=== PATIENT | female | born 1940 | race Caucasian/White ===

== ENCOUNTER 2018-09-09 14:20 | Emergency (ER) | payer MEDICARE, MEDICAID ==
[~2018-09-09] VITALS: Ht 167.6 cm; Wt 61.2 kg
[~2018-09-09 14:20] MED LIST: ALBU8.5H8 IH; ASPI-992 PO; CLON0.5T23 PO; DESV50TA PO; DEXL60CA3 PO; DICL100G14 TP; DOCU100T PO; FLUT1DIS3 IH; FURO-144 PO; LEVO200T PO; NEBI10TA2 PO; POTA8TAB3 PO; ROFL500T PO; ROSU20TA2 PO; TOLT4CAP PO; VALS320T2 PO
--- NOTE | 2018-09-09 15:00 | NUR ---
PATIENT CAME TO THE ER C/O LEFT ARM, AND FOOT PAIN S/P FALL 10 DAYS AGO,-KO. ON ROOM AIR, BREATHING EVENLY AND UNLABORED. AMBULATORY WITH STEADY GAIT. WILL CONTINUE TO MONITOR ACCORDINGLY.
[2018-09-09 15:42] VITALS: BP 145/88
--- NOTE | 2018-09-09 15:44 | NUR ---
Patient does not wish to proceed with medical care recommended by ( [facility]). Patient given information related to possible complications, up to and including , which could occur as a result of leaving the hospital at this time. Patient verbalizes understanding of risks involved due to leaving against medical advice. Patient has signed AMA form.
== END 2018-09-09 15:44 | disposition left against medical advice (07) ==
LOC: ER 14:20
DX: M25.532 Pain in left wrist (principal); M79.672 Pain in left foot; I25.10 Atherosclerotic heart disease of native coronary artery without angina pectoris; I10 Essential (primary) hypertension; E78.5 Hyperlipidemia, unspecified; J45.909 Unspecified asthma, uncomplicated; Z95.1 Presence of aortocoronary bypass graft; Z90.710 Acquired absence of both cervix and uterus; Z90.49 Acquired absence of other specified parts of digestive tract; Z98.890 Other specified postprocedural states; Z88.6 Allergy status to analgesic agent; Z79.82 Long term (current) use of aspirin
CPT/HCPCS: 73110; 73630-TC

== ENCOUNTER 2019-03-14 08:48 | Emergency (ER) | payer MEDICARE, OTHER ==
[~2019-03-14] VITALS: Ht 167.6 cm; Wt 59.9 kg
--- NOTE | 2019-03-14 08:53 | NUR ---
BIB [facility] C/O PROGRESSIVE MID STERNAL CHEST PAIN WITH SOB X 1 WK. TO ER 9, HOOKED TO MONITOR, CHANGED TO HOSP GOWN PROVIDED W WARM BLANKET, AWAITING MD DAWSON.
[2019-03-14 09:23] LABS: BASOPHILS # (AUTO) 0.1 /CMM (0.0-0.2); BASOPHILS % (AUTO) 0.7 % (0.0-2.0); EOSINOPHILS % (AUTO) 0.7 % (0.0-6.0); HEMATOCRIT 36 % (33-45); HEMOGLOBIN 12.1 g/dL (11.5-14.8); LYMPHOCYTES # (AUTO) 0.6 /CMM (0.8-4.8); LYMPHOCYTES % (AUTO) 7.3 % (20.0-44.0); MEAN CORPUSCULAR HGB CONC 34 g/dl (31.0-36.0); MEAN CORPUSCULAR VOLUME 93 fL (82-100); MONOCYTES # (AUTO) 0.4 /CMM (0.1-1.30); NEUTROPHILS % (AUTO) 86.3 % (43.0-81.0); PLATELET COUNT (AUTO) 173 /CMM (150-450); RED BLOOD CELL COUNT(AUTO) 3.86 MIL/uL (4.0-5.2); WHITE BLOOD COUNT (AUTO) 8.2 K/uL (4.3-11.0)
--- NOTE | 2019-03-14 09:24 | NUR ---
RN MILITARY/MED RECON. UNABLE TO UPDATE MED-RECON AT THIS TIME. PATIENT AND FAMILY AT BEDSIDE UNABLE TO PROVIDE ANY INFO. PCP AND PHARMACY OF CHOICE ARE CLOSED ON WEEKEND. PER FAMILY "I'LL TRY TO BRING THE MEDICATION FROM HOME LATER". PRIMARY NURSE AWARE.
[2019-03-14 09:28] LABS: CREATININE 0.9 mg/dL (0.6-1.3); POTASSIUM 3.8 mmol/L (3.5-5.1)
[2019-03-14] MEDS ORDERED: ONDANSETRON HCL/PF 4 MG/2 ML VIAL IVP ONE (09:30)
[2019-03-14] MEDS ORDERED: MORPHINE SULFATE INJ 2 MG/ML DISP.SYRIN IV ONE (09:30)
--- NOTE | 2019-03-14 11:13 | NUR ---
IV removed. Catheter intact and site benign. Pressure and 4x4 applied to site. No bleeding noted.Patient discharged to home in stable condition. Written and verbal after care instructions given. Patient verbalizes understanding of instruction.
[2019-03-14 11:15] VITALS: BP 152/80
== END 2019-03-14 11:16 | disposition home or self-care (01) ==
LOC: ER 08:52
DX: I20.9 Angina pectoris, unspecified (principal); I11.0 Hypertensive heart disease with heart failure; E78.5 Hyperlipidemia, unspecified; J45.909 Unspecified asthma, uncomplicated; Z90.710 Acquired absence of both cervix and uterus; Z98.890 Other specified postprocedural states; Z88.8 Allergy status to other drugs, medicaments and biological substances; Z79.82 Long term (current) use of aspirin; Z79.899 Other long term (current) drug therapy
CPT/HCPCS: 36415; 71045-TC; 80048-TC; 83880; 84484-TC; 85025-TC

== ENCOUNTER 2022-06-16 12:10 | Emergency (ER) | payer MEDICARE, OTHER ==
[~2022-06-16] VITALS: Ht 167.6 cm; Wt 62.1 kg
[~2022-06-16 12:10] MED LIST changes: -DOCU100T PO; +DOCU100T28 PO
--- NOTE | 2022-06-16 12:24 | NUR ---
AT BEDSIDE FOR EVAL
[2022-06-16 12:51] LABS: BASOPHILS # (AUTO) 0.1 K/uL (0.0-0.2); BASOPHILS % (AUTO) 0.7 % (0.0-2.0); EOSINOPHILS % (AUTO) 0.8 % (0.0-6.0); HEMATOCRIT 35 % (33-45); HEMOGLOBIN 11.5 g/dL (11.5-14.8); LYMPHOCYTES # (AUTO) 1.2 K/uL (0.8-4.8); LYMPHOCYTES % (AUTO) 12.6 % (20.0-44.0); MEAN CORPUSCULAR HGB CONC 33 g/dl (31.0-36.0); MEAN CORPUSCULAR VOLUME 93 fL (82-100); MONOCYTES # (AUTO) 0.4 K/uL (0.1-1.30); NEUTROPHILS # (AUTO) 7.7 K/uL (1.8-8.9); NEUTROPHILS % (AUTO) 81.9 % (43.0-81.0); PLATELET COUNT (AUTO) 197 K/uL (150-450); WHITE BLOOD COUNT (AUTO) 9.4 K/uL (4.3-11.0)
[2022-06-16 13:02] LABS: CALCIUM, SERUM 9.4 mg/dL (8.5-10.1); CARBON DIOXIDE 25 mmol/L (21-32); CHLORIDE 108 mmol/L (98-107); CREATININE 1.1 mg/dL (0.6-1.3); GLUCOSE 150 mg/dL (74-106); SODIUM SERUM 142 mmol/L (136-145); UREA NITROGEN, BLOOD 26 mg/dL (7-18)
[2022-06-16 13:08] LABS: ALANINE AMINOTRANSFERASE 18 U/L (12-78); ALBUMIN 3.7 g/dL (3.4-5.0); ALKALINE PHOSPHATASE 64 U/L (46-116); ASPARTATE AMINOTRANSFERASE 19 U/L (15-37); BILIRUBIN,DIRECT 0.1 mg/dL (0.0-0.2); BILIRUBIN,TOTAL 0.4 mg/dL (0.2-1.0); TOTAL PROTEIN, SERUM 6.5 g/dL (6.4-8.2)
--- NOTE | 2022-06-16 13:19 | NUR ---
XRAY AT BEDSIDE
--- NOTE | 2022-06-16 13:21 | NUR ---
TROPONIN 77
[2022-06-16] MEDS ORDERED: FENTANYL PF 100MCG/2ML AMPUL IV ONE (13:30)
--- NOTE | 2022-06-16 14:13 | NUR ---
CONSENT SIGNED BY PATIENT.
[2022-06-16] MEDS ORDERED: PROPOFOL 20 ML IV ONE (14:14)
[2022-06-16] MEDS ORDERED: FENTANYL PF 100MCG/2ML AMPUL ONE (14:15)
--- NOTE | 2022-06-16 14:22 | NUR ---
MD AT BEDSIDE FOR PROCEDURAL SEDATION FOR RIGHT WRIST FRACTURE. RT AT BEDSIDE WELL.
--- NOTE | 2022-06-16 14:24 | NUR ---
ADMINISTERED 60MG OF PROPOFOL VIA IV PER MD ORDERS.
[2022-06-16] MEDS ORDERED: HYDR-4303 PO (15:16)
[2022-06-16] MEDS ORDERED: PROPOFOL 200 MG/20 ML VIAL IV ONE (15:30)
[2022-06-16 18:31] VITALS: BP 138/66
--- NOTE | 2022-06-16 18:32 | NUR ---
Patient does not wish to proceed with medical care recommended by Dr. Somers. Patient given information related to possible complications, up to and including , which could occur as a result of leaving the hospital at this time. Patient verbalizes understanding of risks involved due to leaving against medical advice. Patient has signed AMA form.
== END 2022-06-16 18:34 | disposition left against medical advice (07) ==
LOC: ER 12:14
DX: S52.501A Unspecified fracture of the lower end of right radius, initial encounter for closed fracture (principal); I11.0 Hypertensive heart disease with heart failure; I50.9 Heart failure, unspecified; E78.5 Hyperlipidemia, unspecified; J45.909 Unspecified asthma, uncomplicated; Z90.710 Acquired absence of both cervix and uterus; Z88.8 Allergy status to other drugs, medicaments and biological substances; Z79.899 Other long term (current) drug therapy; W18.30XA Fall on same level, unspecified, initial encounter; Y93.89 Activity, other specified; Y92.89 Other specified places as the place of occurrence of the external cause; Y99.8 Other external cause status
CPT/HCPCS: 25605; 99152; 73090; 73110 ×2; 85025; 80048; 80076; 36415; 84484 ×2; 93005 ×2; 99285; J2704; G0500; J3010

== ENCOUNTER 2022-06-17 19:42 | Emergency (ER) | payer MEDICARE, OTHER ==
[~2022-06-17] VITALS: Ht 167.6 cm; Wt 62.1 kg
[~2022-06-17 19:42] MED LIST changes: +HYDR-4303 PO
[2022-06-17 20:00] VITALS: BP 154/94
--- NOTE | 2022-06-17 20:25 | NUR ---
at beside assessing pt.
--- NOTE | 2022-06-17 20:45 | NUR ---
Doyle oh in ED - 06/17/22 at 2051 by GABRIEL ABD Ultrasound done at beside.
== END 2022-06-17 20:47 | disposition home or self-care (01) ==
LOC: ER 19:49
DX: M25.531 Pain in right wrist (principal); M79.89 Other specified soft tissue disorders; I11.0 Hypertensive heart disease with heart failure; I50.9 Heart failure, unspecified; E78.5 Hyperlipidemia, unspecified; J45.909 Unspecified asthma, uncomplicated; Z90.49 Acquired absence of other specified parts of digestive tract; Z91.040 Latex allergy status; Z79.899 Other long term (current) drug therapy

== ENCOUNTER 2022-12-21 05:59 | Inpatient (IN) | payer MEDICARE, OTHER ==
[~2022-12-21] VITALS: Ht 165.1 cm; Wt 57.6 kg
[2022-12-21] VITALS (13 sets, daily range): BP systolic 124–164; BP diastolic 55–98; TEMP 98; O2SAT 96–100
[2022-12-21] MEDS ORDERED: ASPIRIN 325 MG TABLET ONE (07:13)
[2022-12-21 07:21] LABS: ALANINE AMINOTRANSFERASE 51 U/L (12-78); ALBUMIN 3.9 g/dL (3.4-5.0); ALKALINE PHOSPHATASE 110 U/L (46-116); ASPARTATE AMINOTRANSFERASE 49 U/L (15-37); BILIRUBIN,DIRECT 0.1 mg/dL (0.0-0.2); BILIRUBIN,TOTAL 0.4 mg/dL (0.2-1.0); CARBON DIOXIDE 25 mmol/L (21-32); CHLORIDE 107 mmol/L (98-107); GLUCOSE 117 mg/dL (74-106); NT-PRO BNP 13464 pg/mL (0-125); POTASSIUM 3.6 mmol/L (3.5-5.1); SODIUM SERUM 145 mmol/L (136-145); TOTAL PROTEIN, SERUM 7.3 g/dL (6.4-8.2); UREA NITROGEN, BLOOD 20 mg/dL (7-18)
[2022-12-21 07:26] LABS: BASOPHILS # (AUTO) 0.1 K/uL (0.0-0.2); BASOPHILS % (AUTO) 0.7 % (0.0-2.0); EOSINOPHILS # (AUTO) 0.1 K/uL (0.0-0.7); EOSINOPHILS % (AUTO) 1.4 % (0.0-6.0); HEMATOCRIT 36 % (33-45); LYMPHOCYTES # (AUTO) 0.9 K/uL (0.8-4.8); LYMPHOCYTES % (AUTO) 9.9 % (20.0-44.0); MEAN CORPUSCULAR HEMOGLOBIN 31 PG (26.0-33.0); MEAN CORPUSCULAR HGB CONC 33 g/dl (31.0-36.0); MEAN CORPUSCULAR VOLUME 92 fL (82-100); MONOCYTES # (AUTO) 0.5 K/uL (0.1-1.30); MONOCYTES % (AUTO) 5.7 % (2.0-12.0); NEUTROPHILS # (AUTO) 7.6 K/uL (1.8-8.9); NEUTROPHILS % (AUTO) 82.3 % (43.0-81.0); PLATELET COUNT (AUTO) 201 K/uL (150-450); RED BLOOD CELL COUNT(AUTO) 3.92 MIL/uL (4.0-5.2); RED CELL DISTRIBUTION WIDTH 14.8 % (11.5-15.0); WHITE BLOOD COUNT (AUTO) 9.3 K/uL (4.3-11.0)
[2022-12-21] MEDS ORDERED: ASPIRIN 325 MG TABLET PO ONE (07:30)
[2022-12-21] MEDS ORDERED: POTASSIUM CHLORIDE 20 MEQ TAB.PRT.SR PO ONE ×2 (07:30→07:57)
[2022-12-21] MEDS ORDERED: FUROSEMIDE 40 MG/4 ML VIAL IV ONE (07:30)
[2022-12-21] MEDS ORDERED: NITROGLYCERIN 0.4 MG/TAB BOTTLE ONE (07:33)
[2022-12-21] MEDS ORDERED: FUROSEMIDE 20 MG/2 ML VIAL ONE (07:56)
[2022-12-21] MEDS ORDERED: NITROGLYCERIN 0.4 MG/TAB BOTTLE SL ONE (08:00)
[2022-12-21] MEDS ORDERED: ICOS1CAP PO (09:01)
[2022-12-21] MEDS ORDERED: SACU1TAB4 PO (09:01)
[2022-12-21] MEDS ORDERED: RIVA10TA PO (09:01)
[2022-12-21] MEDS ORDERED: FLUT1BLS6 INH (09:01)
[2022-12-21] MEDS ORDERED: SPIR25TA6 PO (09:01)
[2022-12-21] MEDS ORDERED: ALEN70TA80 PO (09:01)
[2022-12-21] MEDS ORDERED: CHOL200059 PO (09:01)
[2022-12-21] MEDS ORDERED: DEXL60CA3 PO (09:36)
[2022-12-21] MEDS ORDERED: EVOL140P3 SQ (09:38)
[2022-12-21] MEDS ORDERED: ENOXAPARIN SODIUM 30 MG/0.3 ML DISP.SYRIN SQ SCH (13:30)
[2022-12-21] MEDS ORDERED: MAG HYDROX/AL HYDROX/SIMETH 30 ML UDC PO PRN (13:30)
[2022-12-21] MEDS ORDERED: HYDROCODONE/APAP 5/325MG TABLET PO PRN (13:30)
[2022-12-21] MEDS ORDERED: ACETAMINOPHEN 325 MG TABLET PO PRN (13:30)
[2022-12-21] MEDS ORDERED: Z GUARD REMEDY 4 OZ OINT TP PRN (13:30)
[2022-12-21] MEDS ORDERED: MAGNESIUM HYDROXIDE 30 ML UDC PO PRN (13:30)
[2022-12-21] MEDS ORDERED: ONDANSETRON HCL/PF 4 MG/2 ML VIAL IVP PRN (13:30)
[2022-12-21] MEDS: VALSARTAN 80 MG TABLET PO SCH ×2 (17:17→21:23)
[2022-12-21] MEDS: RIVAROXABAN 15 MG TABLET PO SCH (17:18)
[2022-12-21] MEDS: FUROSEMIDE 40 MG/4 ML VIAL IV SCH (18:11)
[2022-12-22] VITALS (16 sets, daily range): BP systolic 122–160; BP diastolic 50–71; TEMP 97.6–98.6; O2SAT 96–100
[2022-12-22] MEDS: FUROSEMIDE 40 MG/4 ML VIAL IV SCH ×4 (00:07→17:03)
[2022-12-22 05:45] LABS: BASOPHILS % (AUTO) 0.9 % (0.0-2.0); EOSINOPHILS # (AUTO) 0.1 K/uL (0.0-0.7); HEMATOCRIT 31 % (33-45); HEMOGLOBIN 10.4 g/dL (11.5-14.8); LYMPHOCYTES % (AUTO) 20.6 % (20.0-44.0); MEAN CORPUSCULAR HEMOGLOBIN 31 PG (26.0-33.0); MEAN CORPUSCULAR HGB CONC 34 g/dl (31.0-36.0); MEAN CORPUSCULAR VOLUME 91 fL (82-100); MONOCYTES # (AUTO) 0.4 K/uL (0.1-1.30); MONOCYTES % (AUTO) 8.8 % (2.0-12.0); NEUTROPHILS # (AUTO) 3.2 K/uL (1.8-8.9); NEUTROPHILS % (AUTO) 67.7 % (43.0-81.0); PLATELET COUNT (AUTO) 153 K/uL (150-450); RED BLOOD CELL COUNT(AUTO) 3.36 MIL/uL (4.0-5.2); RED CELL DISTRIBUTION WIDTH 14.7 % (11.5-15.0); WHITE BLOOD COUNT (AUTO) 4.7 K/uL (4.3-11.0)
[2022-12-22 06:09] LABS: CALCIUM, SERUM 8.7 mg/dL (8.5-10.1); CARBON DIOXIDE 29 mmol/L (21-32); CHLORIDE 107 mmol/L (98-107); CREATININE 1.1 mg/dL (0.6-1.3); GLUCOSE 97 mg/dL (74-106); PHOSPHORUS 3.3 mg/dL (2.5-4.9); POTASSIUM 3.8 mmol/L (3.5-5.1); SODIUM SERUM 143 mmol/L (136-145); UREA NITROGEN, BLOOD 21 mg/dL (7-18)
[2022-12-22] MEDS: PANTOPRAZOLE 40 MG TABLET.DR PO SCH (07:48)
[2022-12-22] MEDS: LEVOTHYROXINE SODIUM 75 MCG TABLET PO SCH (07:48)
[2022-12-22] MEDS: SPIRONOLACTONE 25 MG TABLET PO SCH (08:21)
[2022-12-22] MEDS: VALSARTAN 80 MG TABLET PO SCH ×2 (08:21→21:50)
[2022-12-22] MEDS: POTASSIUM CHLORIDE 20 MEQ TAB.PRT.SR PO SCH ×3 (10:20→12:21)
[2022-12-22] MEDS: ATORVASTATIN 10 MG TABLET PO SCH (10:20)
[2022-12-22 10:24] LABS: IRON, SERUM 62 ug/dl (50-175); TOTAL IRON BINDING CAPACITY 225 ug/dl (250-450)
[2022-12-22 10:38] LABS: CHOLESTEROL 116 mg/dL (<200); FERRITIN 113 ng/mL (8-388); HDL CHOLESTEROL 50 mg/dL (40-60); LDL 57 mg/dL (0-99); TRIGLYCERIDES 64 mg/dL (30-150)
[2022-12-22] MEDS: RIVAROXABAN 15 MG TABLET PO SCH (17:03)
[2022-12-23] VITALS: BP 128/51; TEMP 97.7; O2SAT 98
[2022-12-23] MEDS: FUROSEMIDE 40 MG/4 ML VIAL IV SCH ×2 (00:20→05:47)
[2022-12-23 04:00] VITALS: BP 110/48; TEMP 97.9; O2SAT 96
[2022-12-23 07:06] LABS: BASOPHILS # (AUTO) 0.1 K/uL (0.0-0.2); BASOPHILS % (AUTO) 1.1 % (0.0-2.0); EOSINOPHILS # (AUTO) 0.1 K/uL (0.0-0.7); EOSINOPHILS % (AUTO) 2.2 % (0.0-6.0); HEMATOCRIT 36 % (33-45); HEMOGLOBIN 11.8 g/dL (11.5-14.8); LYMPHOCYTES % (AUTO) 17.1 % (20.0-44.0); MEAN CORPUSCULAR HEMOGLOBIN 30 PG (26.0-33.0); MEAN CORPUSCULAR HGB CONC 33 g/dl (31.0-36.0); MEAN CORPUSCULAR VOLUME 92 fL (82-100); MONOCYTES # (AUTO) 0.5 K/uL (0.1-1.30); NEUTROPHILS # (AUTO) 4.1 K/uL (1.8-8.9); NEUTROPHILS % (AUTO) 70.6 % (43.0-81.0); PLATELET COUNT (AUTO) 189 K/uL (150-450); RED BLOOD CELL COUNT(AUTO) 3.94 MIL/uL (4.0-5.2); RED CELL DISTRIBUTION WIDTH 14.4 % (11.5-15.0); WHITE BLOOD COUNT (AUTO) 5.8 K/uL (4.3-11.0)
[2022-12-23 07:38] LABS: ALANINE AMINOTRANSFERASE 44 U/L (12-78); ALBUMIN 3.7 g/dL (3.4-5.0); ALKALINE PHOSPHATASE 86 U/L (46-116); ASPARTATE AMINOTRANSFERASE 31 U/L (15-37); BILIRUBIN,TOTAL 0.7 mg/dL (0.2-1.0); CALCIUM, SERUM 9.7 mg/dL (8.5-10.1); CARBON DIOXIDE 27 mmol/L (21-32); CHLORIDE 101 mmol/L (98-107); CREATININE 1.4 mg/dL (0.6-1.3); GLUCOSE 66 mg/dL (74-106); PHOSPHORUS 4.4 mg/dL (2.5-4.9); SODIUM SERUM 143 mmol/L (136-145); TOTAL PROTEIN, SERUM 6.9 g/dL (6.4-8.2); UREA NITROGEN, BLOOD 30 mg/dL (7-18)
[2022-12-23] MEDS: PANTOPRAZOLE 40 MG TABLET.DR PO SCH (07:44)
[2022-12-23] MEDS: LEVOTHYROXINE SODIUM 75 MCG TABLET PO SCH (07:45)
[2022-12-23 08:00] VITALS: BP 124/55; TEMP 97.7; O2SAT 98
[2022-12-23] MEDS: ATORVASTATIN 10 MG TABLET PO SCH (08:43)
[2022-12-23] MEDS: VALSARTAN 80 MG TABLET PO SCH (08:43)
[2022-12-23] MEDS: SPIRONOLACTONE 25 MG TABLET PO SCH (08:43)
[2022-12-23] MEDS: AMIODARONE HCL 200 MG TABLET PO SCH ×2 (10:25→12:53)
[2022-12-23 12:53] VITALS: BP 128/58
== END 2022-12-23 15:30 | disposition home or self-care (01) | DRG 280 ==
LOC: ER 06:09 → TRANSITION 14:29 → ICU 15:46 → TELE 12-22 12:30 → MED 12-23 10:21
DX: I11.0 Hypertensive heart disease with heart failure (principal); I21.A1 Myocardial infarction type 2; I50.33 Acute on chronic diastolic (congestive) heart failure; J96.01 Acute respiratory failure with hypoxia; I47.20 Ventricular tachycardia, unspecified; E78.5 Hyperlipidemia, unspecified; E03.9 Hypothyroidism, unspecified; I25.10 Atherosclerotic heart disease of native coronary artery without angina pectoris; J45.909 Unspecified asthma, uncomplicated; Z79.01 Long term (current) use of anticoagulants; Z88.0 Allergy status to penicillin; Z95.0 Presence of cardiac pacemaker; Z95.1 Presence of aortocoronary bypass graft; K27.9 Peptic ulcer, site unspecified, unspecified as acute or chronic, without hemorrhage or perforation; Z90.710 Acquired absence of both cervix and uterus
CPT/HCPCS: 36415; 71045-TC; 80048-TC; 80053-TC; 80061-TC; 80076-TC; 82728-TC; 83540-TC; 83735-TC; 83880; 84100-TC; 84484-TC; 85025-TC; 93307-TC; 94660; 94799-TC; 97110-TC; 97116-TC; 97530-TC; C9803; G0378; J1940

== ENCOUNTER 2023-05-04 05:43 | Inpatient (IN) | payer MEDICARE, OTHER ==
[~2023-05-04] VITALS: Ht 167.6 cm; Wt 58.1 kg
[~2023-05-04 05:43] MED LIST changes: +ALEN70TA80 PO; -ASPI-992 PO; +CHOL200059 PO; -CLON0.5T23 PO; -DESV50TA PO; -DICL100G14 TP; -DOCU100T28 PO; +EVOL140P3 SQ; +FLUT1BLS6 INH; -FLUT1DIS3 IH; -HYDR-4303 PO; +ICOS1CAP PO; +RIVA10TA PO; -ROFL500T PO; -ROSU20TA2 PO; +SACU1TAB4 PO; +SPIR25TA6 PO; -TOLT4CAP PO; -VALS320T2 PO
[2023-05-04] MEDS ORDERED: NITROGLYCERIN 0.4 MG/TAB BOTTLE ONE (06:58)
[2023-05-04] MEDS: NITROGLYCERIN 0.4 MG/TAB BOTTLE SL ONE (07:02)
[2023-05-04 07:14] LABS: BASOPHILS # (AUTO) 0.1 K/uL (0.0-0.2); BASOPHILS % (AUTO) 0.6 % (0.0-2.0); EOSINOPHILS # (AUTO) 0.1 K/uL (0.0-0.7); EOSINOPHILS % (AUTO) 1.3 % (0.0-6.0); HEMATOCRIT 35 % (33-45); HEMOGLOBIN 11.5 g/dL (11.5-14.8); LYMPHOCYTES # (AUTO) 1.4 K/uL (0.8-4.8); LYMPHOCYTES % (AUTO) 12.4 % (20.0-44.0); MEAN CORPUSCULAR HEMOGLOBIN 31 PG (26.0-33.0); MEAN CORPUSCULAR HGB CONC 33 g/dl (31.0-36.0); MEAN CORPUSCULAR VOLUME 94 fL (82-100); MONOCYTES # (AUTO) 0.8 K/uL (0.1-1.30); MONOCYTES % (AUTO) 7.1 % (2.0-12.0); NEUTROPHILS # (AUTO) 8.8 K/uL (1.8-8.9); NEUTROPHILS % (AUTO) 78.6 % (43.0-81.0); PLATELET COUNT (AUTO) 192 K/uL (150-450); RED BLOOD CELL COUNT(AUTO) 3.68 MIL/uL (4.0-5.2); RED CELL DISTRIBUTION WIDTH 14.8 % (11.5-15.0); WHITE BLOOD COUNT (AUTO) 11.3 K/uL (4.3-11.0)
[2023-05-04 07:24] LABS: CALCIUM, SERUM 9.2 mg/dL (8.5-10.1); CARBON DIOXIDE 33 mmol/L (21-32); CHLORIDE 106 mmol/L (98-107); CREATININE 1.3 mg/dL (0.6-1.3); GLUCOSE 150 mg/dL (74-106); SODIUM SERUM 144 mmol/L (136-145); UREA NITROGEN, BLOOD 32 mg/dL (7-18)
[2023-05-04 07:27] LABS: INR 1.05 (0.91-1.10); PARTIAL THROMBOPLASTIN TIME 22.5 SEC (24.3-34.3); PROTHROMBIN TIME 11.1 SECS (9.2-11.1)
[2023-05-04 07:38] LABS: ALANINE AMINOTRANSFERASE 55 U/L (12-78); ALBUMIN 3.1 g/dL (3.4-5.0); ALKALINE PHOSPHATASE 80 U/L (46-116); ASPARTATE AMINOTRANSFERASE 44 U/L (15-37); BILIRUBIN,DIRECT 0.2 mg/dL (0.0-0.2); BILIRUBIN,TOTAL 0.6 mg/dL (0.2-1.0); NT-PRO BNP > 25000 pg/mL (0-125); TOTAL PROTEIN, SERUM 6.1 g/dL (6.4-8.2)
[2023-05-04] MEDS ORDERED: [UNRECOGNIZED DRUG - OTHER] PO (07:39)
[2023-05-04] MEDS ORDERED: FUROSEMIDE 40 MG/4 ML VIAL ONE ×2 (07:54→12:59)
[2023-05-04] MEDS: FUROSEMIDE 40 MG/4 ML VIAL IV ONE (07:54)
[2023-05-04] MEDS ORDERED: ASPIRIN EC 81 MG TABLET.DR PO ONE (07:55)
[2023-05-04] MEDS: ASPIRIN 81 MG TAB.CHEW PO ONE (07:55)
[2023-05-04] MEDS ORDERED: MAG HYDROX/AL HYDROX/SIMETH 30 ML UDC PO PRN (12:30)
[2023-05-04] MEDS ORDERED: ACETAMINOPHEN 325 MG TABLET PO PRN (12:30)
[2023-05-04] MEDS ORDERED: ZOLPIDEM TARTRATE 5 MG TABLET PO PRN (12:30)
[2023-05-04] MEDS ORDERED: HYDROCODONE/APAP 5/325MG TABLET PO PRN (12:30)
[2023-05-04] MEDS ORDERED: MAGNESIUM HYDROXIDE 30 ML UDC PO PRN (12:30)
[2023-05-04] MEDS ORDERED: Z GUARD REMEDY 4 OZ OINT TP PRN (12:30)
[2023-05-04] MEDS ORDERED: ONDANSETRON HCL/PF 4 MG/2 ML VIAL IVP PRN (12:30)
[2023-05-04] MEDS: FUROSEMIDE 40 MG/4 ML VIAL IV SCH (12:59)
[2023-05-04 16:00] VITALS: BP 168/76; TEMP 97.5; O2SAT 99
[2023-05-04 20:00] VITALS: BP_SYST 103; BP_SYST 134; BP_DIAS 51; BP_DIAS 69; TEMP 97.5; O2SAT 100; O2SAT 98
[2023-05-04 20:47] VITALS: O2SAT 96
[2023-05-04] MEDS: ENOXAPARIN SODIUM 30 MG/0.3 ML DISP.SYRIN SQ SCH (21:20)
[2023-05-05] VITALS: BP 149/68; TEMP 97.7; O2SAT 96
[2023-05-05 07:07] LABS: BASOPHILS % (AUTO) 0.5 % (0.0-2.0); EOSINOPHILS # (AUTO) 0.1 K/uL (0.0-0.7); EOSINOPHILS % (AUTO) 1.3 % (0.0-6.0); HEMATOCRIT 33 % (33-45); HEMOGLOBIN 11.2 g/dL (11.5-14.8); LYMPHOCYTES # (AUTO) 0.8 K/uL (0.8-4.8); LYMPHOCYTES % (AUTO) 9.2 % (20.0-44.0); MEAN CORPUSCULAR HEMOGLOBIN 32 PG (26.0-33.0); MEAN CORPUSCULAR HGB CONC 34 g/dl (31.0-36.0); MEAN CORPUSCULAR VOLUME 94 fL (82-100); MONOCYTES # (AUTO) 0.7 K/uL (0.1-1.30); NEUTROPHILS # (AUTO) 6.9 K/uL (1.8-8.9); PLATELET COUNT (AUTO) 150 K/uL (150-450); RED BLOOD CELL COUNT(AUTO) 3.55 MIL/uL (4.0-5.2); RED CELL DISTRIBUTION WIDTH 13.9 % (11.5-15.0); WHITE BLOOD COUNT (AUTO) 8.5 K/uL (4.3-11.0)
[2023-05-05 07:30] VITALS: BP 140/65; TEMP 98.1; O2SAT 100
[2023-05-05] MEDS: PANTOPRAZOLE 40 MG TABLET.DR PO SCH (07:36)
[2023-05-05 07:57] LABS: CHOLESTEROL 104 mg/dL (<200); HDL CHOLESTEROL 46 mg/dL (40-60); LDL 41 mg/dL (0-99); THYROID STIMULATING HORMONE 1.122 uIU/mL (0.358-3.74); TRIGLYCERIDES 93 mg/dL (30-150)
[2023-05-05 08:01] LABS: CALCIUM, SERUM 9.4 mg/dL (8.5-10.1); CARBON DIOXIDE 35 mmol/L (21-32); CHLORIDE 103 mmol/L (98-107); CREATININE 1.4 mg/dL (0.6-1.3); GLUCOSE 107 mg/dL (74-106); MAGNESIUM 1.9 mg/dL (1.8-2.4); PHOSPHORUS 4.7 mg/dL (2.5-4.9); POTASSIUM 3.7 mmol/L (3.5-5.1); SODIUM SERUM 144 mmol/L (136-145); UREA NITROGEN, BLOOD 38 mg/dL (7-18)
[2023-05-05] MEDS ORDERED: Medication Not On Formulary EA (Icosapent Ethyl (Vascepa) 2 GM) PO SCH (10:00)
[2023-05-05] MEDS ORDERED: ALBUTEROL FS 2.5 MG/0.5 ML VIAL.NEB IH PRN (10:00)
[2023-05-05 16:00] VITALS: BP 147/66; TEMP 97.3; O2SAT 89
[2023-05-05] MEDS ORDERED: SACUBITRIL/VALSARTAN 1 EACH TABLET PO SCH (17:00)
[2023-05-05] MEDS ORDERED: RIVAROXABAN 10 MG TABLET PO SCH (17:00)
[2023-05-05] MEDS ORDERED: METOPROLOL TARTRATE 50 MG TABLET PO SCH (21:00)
[2023-05-06] MEDS ORDERED: LEVOTHYROXINE SODIUM 75 MCG TABLET PO SCH (07:30)
[2023-05-06] MEDS ORDERED: POTASSIUM CHLORIDE 10 MEQ TABLET.SA PO SCH (09:00)
== END 2023-05-05 18:09 | disposition home or self-care (01) | DRG 280 ==
LOC: ER 05:54 → TELE 11:52 → MED 05-05 16:36
DX: I13.0 Hypertensive heart and chronic kidney disease with heart failure and stage 1 through stage 4 chronic kidney disease, or unspecified chronic kidney disease (principal); I50.43 Acute on chronic combined systolic (congestive) and diastolic (congestive) heart failure; I21.A1 Myocardial infarction type 2; J96.01 Acute respiratory failure with hypoxia; N17.0 Acute kidney failure with tubular necrosis; I47.20 Ventricular tachycardia, unspecified; E78.5 Hyperlipidemia, unspecified; I25.10 Atherosclerotic heart disease of native coronary artery without angina pectoris; N18.9 Chronic kidney disease, unspecified; Z79.01 Long term (current) use of anticoagulants; Z88.0 Allergy status to penicillin; Z95.1 Presence of aortocoronary bypass graft; Z20.822 Contact with and (suspected) exposure to COVID-19; J45.909 Unspecified asthma, uncomplicated; K27.9 Peptic ulcer, site unspecified, unspecified as acute or chronic, without hemorrhage or perforation; I42.9 Cardiomyopathy, unspecified; Z95.810 Presence of automatic (implantable) cardiac defibrillator
CPT/HCPCS: 36415; 71045-TC; 76770-TC; 80048-TC; 80061-TC; 80076-TC; 83605-TC; 83735-TC; 83880; 84100-TC; 84443-TC; 84484-TC; 85025-TC; 85730-TC; 87040-TC; 94761-TC; 94762-TC; 94799-TC; 97112-TC; 97116-TC; 97530-TC; G0378; J1650; J1940

== ENCOUNTER 2024-04-21 15:50 | Inpatient (IN) | payer MEDICARE, OTHER ==
[~2024-04-21] VITALS: Ht 165.1 cm; Wt 54.4 kg
[~2024-04-21 15:50] MED LIST changes: -SPIR25TA6 PO; +[UNRECOGNIZED DRUG - OTHER] PO
[2024-04-21] MEDS: IV NS 0.9% 1,000 ML BAG IV ONE ×2 (16:30→18:12)
[2024-04-21 16:54] LABS: BASOPHILS # (AUTO) 0.1 K/uL (0.0-0.2); BASOPHILS % (AUTO) 0.5 % (0.0-2.0); EOSINOPHILS % (AUTO) 0.1 % (0.0-6.0); HEMATOCRIT 37 % (33-45); HEMOGLOBIN 12.9 g/dL (11.5-14.8); LYMPHOCYTES # (AUTO) 0.3 K/uL (0.8-4.8); LYMPHOCYTES % (AUTO) 1.2 % (20.0-44.0); MEAN CORPUSCULAR HEMOGLOBIN 32 PG (26.0-33.0); MEAN CORPUSCULAR HGB CONC 35 g/dl (31.0-36.0); MEAN CORPUSCULAR VOLUME 92 fL (82-100); MONOCYTES # (AUTO) 0.1 K/uL (0.1-1.30); MONOCYTES % (AUTO) 0.4 % (2.0-12.0); NEUTROPHILS # (AUTO) 21.1 K/uL (1.8-8.9); NEUTROPHILS % (AUTO) 97.8 % (43.0-81.0); PLATELET COUNT (AUTO) 304 K/uL (150-450); RED BLOOD CELL COUNT(AUTO) 3.99 MIL/uL (4.0-5.2); RED CELL DISTRIBUTION WIDTH 15.2 % (11.5-15.0); WHITE BLOOD COUNT (AUTO) 21.6 K/uL (4.3-11.0)
[2024-04-21 17:04] LABS: PROTHROMBIN TIME 10.6 SECS (9.2-11.1)
[2024-04-21 17:13] LABS: LACTIC ACID 1.9 mmol/L (0.4-2.0)
[2024-04-21 17:36] LABS: ALANINE AMINOTRANSFERASE 87 U/L (12-78); ALBUMIN 2.5 g/dL (3.4-5.0); ALKALINE PHOSPHATASE 104 U/L (46-116); ASPARTATE AMINOTRANSFERASE 77 U/L (15-37); BILIRUBIN,DIRECT 0.3 mg/dL (0.0-0.2); BILIRUBIN,TOTAL 0.6 mg/dL (0.2-1.0); CALCIUM, SERUM 9.2 mg/dL (8.5-10.1); CARBON DIOXIDE 20 mmol/L (21-32); CHLORIDE 97 mmol/L (98-107); CREATININE 2.9 mg/dL (0.6-1.3); GLUCOSE 125 mg/dL (74-106); POTASSIUM 3.5 mmol/L (3.5-5.1); SODIUM SERUM 132 mmol/L (136-145); TOTAL PROTEIN, SERUM 6.7 g/dL (6.4-8.2)
[2024-04-21 17:37] LABS: UREA NITROGEN, BLOOD 97 mg/dL (7-18)
[2024-04-21] MEDS: CEFTRIAXONE 1 G in IV D5W 50 ML IV ONE (18:00)
[2024-04-21] MEDS ORDERED: METO5TAB7 PO (18:05)
[2024-04-21] MEDS ORDERED: CLON0.5T4 PO (18:05)
[2024-04-21] MEDS ORDERED: CYAN1TAB15 PO (18:05)
[2024-04-21] MEDS ORDERED: HYDR-4076 PO (18:05)
[2024-04-21] MEDS: FUROSEMIDE 40 MG/4 ML VIAL IV ONE (18:30)
[2024-04-21] MEDS ORDERED: FUROSEMIDE 40 MG/4 ML VIAL ONE (19:06)
[2024-04-21] MEDS ORDERED: clonazePAM 0.5 MG TABLET PO PRN (19:30)
[2024-04-21 21:30] VITALS: BP 115/74; TEMP 99.1; O2SAT 99
[2024-04-21] MEDS: DOXYCYCLINE HYCLATE (100 MG) 100 MG TABLET PO SCH (21:55)
[2024-04-21] MEDS: HEPARIN SODIUM, PORCINE 5000 UNITS/1 ML VIAL SQ SCH (21:56)
[2024-04-21] MEDS: ACETAMINOPHEN 325 MG TABLET PO PRN (23:55)
[2024-04-22] VITALS: BP 136/56; TEMP 100.2; O2SAT 96
[2024-04-22 04:00] VITALS: BP 126/53; TEMP 97.5; O2SAT 96
[2024-04-22 05:41] LABS: ABG BASE EXCESS -3.1 mmol/L (-2.0-3.0); ABG OXYGEN SATURATION 92.7 % (94.0-98.0); ABG PCO2 36.3 mmHg (32.0-45.0); ABG PH 7.388 (7.350-7.450); ABG PO2 70.9 mmHg (83.0-108.0); ABG TOTAL HEMOGLOBIN 11.6 G/dL (12.0-16.0); COHb 0.3 % (0.5-1.5); MetHb 0.3 % (0.0-1.5); O2Hb 92.1 % (94.0-97.0); SITE, ABG RIGHT BRACHIAL
[2024-04-22 07:59] LABS: BASOPHILS % (AUTO) 0.1 % (0.0-2.0); EOSINOPHILS % (AUTO) 0.1 % (0.0-6.0); HEMATOCRIT 32 % (33-45); HEMOGLOBIN 10.9 g/dL (11.5-14.8); LYMPHOCYTES # (AUTO) 0.1 K/uL (0.8-4.8); LYMPHOCYTES % (AUTO) 0.7 % (20.0-44.0); MEAN CORPUSCULAR HEMOGLOBIN 32 PG (26.0-33.0); MEAN CORPUSCULAR HGB CONC 34 g/dl (31.0-36.0); MEAN CORPUSCULAR VOLUME 92 fL (82-100); MONOCYTES # (AUTO) 0.1 K/uL (0.1-1.30); MONOCYTES % (AUTO) 0.9 % (2.0-12.0); NEUTROPHILS # (AUTO) 16.8 K/uL (1.8-8.9); NEUTROPHILS % (AUTO) 98.2 % (43.0-81.0); PLATELET COUNT (AUTO) 253 K/uL (150-450); RED BLOOD CELL COUNT(AUTO) 3.45 MIL/uL (4.0-5.2); RED CELL DISTRIBUTION WIDTH 15.2 % (11.5-15.0); WHITE BLOOD COUNT (AUTO) 17.1 K/uL (4.3-11.0)
[2024-04-22 08:05] VITALS: BP 128/62; TEMP 98.9; O2SAT 99
[2024-04-22 08:24] LABS: CALCIUM, SERUM 8.9 mg/dL (8.5-10.1); CREATININE 2.4 mg/dL (0.6-1.3); MAGNESIUM 2.2 mg/dL (1.8-2.4); PHOSPHORUS 4.3 mg/dL (2.5-4.9); POTASSIUM 3.2 mmol/L (3.5-5.1)
[2024-04-22] MEDS: METOLAZONE 2.5 MG TABLET PO SCH (08:35)
[2024-04-22] MEDS: SACUBITRIL/VALSARTAN 49/51MG TABLET PO SCH (08:35)
[2024-04-22] MEDS: PANTOPRAZOLE 40 MG TABLET.DR PO SCH (08:35)
[2024-04-22] MEDS: CHOLECALCIFEROL 1,000 UNIT TABLET (VIT D3) PO SCH (08:35)
[2024-04-22] MEDS: LEVOTHYROXINE SODIUM 125 MCG TABLET PO SCH (08:35)
[2024-04-22] MEDS ORDERED: [UNRECOGNIZED DRUG - OTHER] PO SCH (09:00)
[2024-04-22] MEDS ORDERED: PYRIDOXINE PO SCH (09:00)
[2024-04-22] MEDS ORDERED: Medication Not On Formulary EA (Fluticasone/Umeclidin/Vilanter (Trelegy Ellipta 100-62.5 INH SCH (09:00)
[2024-04-22] MEDS ORDERED: CYANOCOBALAMIN PO SCH (09:00)
[2024-04-22] MEDS: FUROSEMIDE 40 MG/4 ML VIAL IV SCH (11:58)
[2024-04-22 12:05] VITALS: BP 126/66; TEMP 98.9; O2SAT 98
[2024-04-22] MEDS: POTASSIUM CHLORIDE 20 MEQ TAB.PRT.SR PO SCH (12:51)
[2024-04-22] MEDS ORDERED: IPRATROPIUM NEB FS 0.5 MG/2.5 ML AMPUL.NEB NEB SCH (13:30)
[2024-04-22] MEDS: GABAPENTIN 100 MG CAPSULE PO SCH (13:30)
[2024-04-22] MEDS ORDERED: ALBUTEROL FS 2.5 MG/3 ML VIAL.NEB NEB SCH (13:30)
[2024-04-22] MEDS ORDERED: CEFEPIME 1 GM VIAL IV SCH (14:00)
[2024-04-22] MEDS: CEFEPIME 1 GM in IV D5W 50 ML IV ONE (15:44)
[2024-04-22 16:18] VITALS: BP 144/57; TEMP 98.1; O2SAT 93
[2024-04-22] MEDS: IPRATROPIUM/ALBUTEROL INHALER IH SCH (16:54)
[2024-04-22] MEDS ORDERED: IPRATROPIUM/ALBUTEROL INHALER IH SCH (18:00)
[2024-04-22 20:00] VITALS: BP 114/74; TEMP 97.5; O2SAT 99
[2024-04-23] VITALS: BP 105/57; TEMP 98.6; O2SAT 94
[2024-04-23 04:00] VITALS: BP 138/67; TEMP 97.2; O2SAT 95
[2024-04-23 07:35] LABS: ALBUMIN 2.1 g/dL (3.4-5.0); BILIRUBIN,TOTAL 0.6 mg/dL (0.2-1.0); MAGNESIUM 2.1 mg/dL (1.8-2.4); PHOSPHORUS 2.6 mg/dL (2.5-4.9); POTASSIUM 3.5 mmol/L (3.5-5.1); TOTAL PROTEIN, SERUM 6.1 g/dL (6.4-8.2)
[2024-04-23 07:59] LABS: BASOPHILS # (AUTO) 0.1 K/uL (0.0-0.2); BASOPHILS % (AUTO) 0.4 % (0.0-2.0); EOSINOPHILS % (AUTO) 0.2 % (0.0-6.0); HEMATOCRIT 35 % (33-45); HEMOGLOBIN 11.9 g/dL (11.5-14.8); LYMPHOCYTES # (AUTO) 0.2 K/uL (0.8-4.8); LYMPHOCYTES % (AUTO) 1.1 % (20.0-44.0); MEAN CORPUSCULAR HEMOGLOBIN 32 PG (26.0-33.0); MEAN CORPUSCULAR HGB CONC 34 g/dl (31.0-36.0); MEAN CORPUSCULAR VOLUME 93 fL (82-100); MONOCYTES # (AUTO) 0.1 K/uL (0.1-1.30); MONOCYTES % (AUTO) 0.3 % (2.0-12.0); NEUTROPHILS # (AUTO) 20.8 K/uL (1.8-8.9); PLATELET COUNT (AUTO) 245 K/uL (150-450); RED BLOOD CELL COUNT(AUTO) 3.76 MIL/uL (4.0-5.2); RED CELL DISTRIBUTION WIDTH 15.6 % (11.5-15.0); WHITE BLOOD COUNT (AUTO) 21.2 K/uL (4.3-11.0)
[2024-04-23 08:00] VITALS: BP 118/66; TEMP 98.6; O2SAT 94
[2024-04-23] MEDS: dexaMETHasone SOD PHOSPHATE 10 MG/ML VIAL IV SCH (08:54)
[2024-04-23 12:00] VITALS: BP 122/58; TEMP 98.8; O2SAT 95
[2024-04-23 14:52] LABS: APPEARANCE,URINE CLEAR (CLEAR); BILIRUBIN,URINE NEGATIVE (NEGATIVE); BLOOD, URINE TRACE-INTA Ery/uL (NEGATIVE); COLOR,URINE YELLOW (YELLOW); KETONES,URINE NEGATIVE (NEGATIVE); LEUKOCYTE ESTERASE ,URINE NEGATIVE (NEGATIVE); NITRITE, URINE NEGATIVE (NEGATIVE); PH,URINE 5.5 (5.0-8.0); PROTEIN,URINE NEGATIVE (NEGATIVE); UGLUCOSE NEGATIVE (NEGATIVE); UROBILINOGEN,URINE 0.2 EU/dL (0.2)
[2024-04-23 15:02] LABS: CREATININE, URINE 36.8 MG/DL (30.0-125.0); URINE TOTAL PROTEIN 51.4 mg/dL (0-11.9)
[2024-04-23 15:17] LABS: ADD URINE CULTURE NO; BACTERIA,URINE Rare /HPF (None Seen); SQUAMOUS EPITHELIAL CELL,UR 0-2 /HPF (None Seen); WBC,URINE 0-2 /HPF (0-3)
[2024-04-23 16:00] VITALS: BP 106/51; TEMP 97.3; O2SAT 95
[2024-04-23] MEDS: CEFTRIAXONE 2 G in IV D5W 100 ML IV SCH (16:07)
[2024-04-23 16:44] LABS: EOSINOPHIL,URINE None Seen
[2024-04-23 20:00] VITALS: BP 126/53; TEMP 97.2; O2SAT 95
[2024-04-24] VITALS: BP 115/54; TEMP 98.1; O2SAT 94
[2024-04-24 04:00] VITALS: BP 136/71; TEMP 97.3; O2SAT 93
[2024-04-24 05:11] LABS: PTH, INTACT 91 pg/mL (15-65)
[2024-04-24 08:00] VITALS: BP 127/65; TEMP 97.5; O2SAT 93
[2024-04-24] MEDS ORDERED: LEVOFLOXACIN 500 MG /D5W 100ML 500 MG in PREMIX 1 EA IV SCH (09:00)
[2024-04-24] MEDS: AMIODARONE HCL 200 MG TABLET PO SCH (10:22)
[2024-04-24 12:00] VITALS: BP 108/55; TEMP 97.5; O2SAT 92
[2024-04-24 12:19] LABS: BASOPHILS # (AUTO) 0.1 K/uL (0.0-0.2); BASOPHILS % (AUTO) 0.2 % (0.0-2.0); EOSINOPHILS % (AUTO) 0.1 % (0.0-6.0); HEMATOCRIT 35 % (33-45); HEMOGLOBIN 11.7 g/dL (11.5-14.8); LYMPHOCYTES # (AUTO) 0.5 K/uL (0.8-4.8); LYMPHOCYTES % (AUTO) 1.6 % (20.0-44.0); MEAN CORPUSCULAR HEMOGLOBIN 31 PG (26.0-33.0); MEAN CORPUSCULAR HGB CONC 34 g/dl (31.0-36.0); MEAN CORPUSCULAR VOLUME 91 fL (82-100); MONOCYTES # (AUTO) 0.4 K/uL (0.1-1.30); MONOCYTES % (AUTO) 1.3 % (2.0-12.0); NEUTROPHILS # (AUTO) 29.5 K/uL (1.8-8.9); NEUTROPHILS % (AUTO) 96.8 % (43.0-81.0); PLATELET COUNT (AUTO) 305 K/uL (150-450); RED CELL DISTRIBUTION WIDTH 15.4 % (11.5-15.0)
[2024-04-24 12:23] LABS: CALCIUM, SERUM 9.1 mg/dL (8.5-10.1); CREATININE 2.2 mg/dL (0.6-1.3); MAGNESIUM 2.1 mg/dL (1.8-2.4); PHOSPHORUS 4.2 mg/dL (2.5-4.9); POTASSIUM 3.6 mmol/L (3.5-5.1)
[2024-04-24 12:25] LABS: WHITE BLOOD COUNT (AUTO) 30.5 K/uL (4.3-11.0)
[2024-04-24 15:00] LABS: LYMPHOCYTES % (MANUAL) 1 % (16-48); MONOCYTES % (MANUAL) 1 % (0-11.0); NEUTROPHILS % (MANUAL) 98 (42-76); PLATELET ESTIMATE ADEQUATE
[2024-04-24 15:01] LABS: ANISOCYTOSIS 1+
[2024-04-24 16:00] VITALS: BP 102/55; TEMP 97.3; O2SAT 93
[2024-04-24 20:00] VITALS: BP 131/50; TEMP 97.3; O2SAT 96
[2024-04-24] MEDS: BENZONATATE 100 MG CAPSULE PO PRN (20:49)
[2024-04-25] VITALS (14 sets, daily range): BP systolic 121–136; BP diastolic 46–89; TEMP 97–97.9; O2SAT 87–99
[2024-04-25] MEDS: ONDANSETRON HCL/PF 4 MG/2 ML VIAL IVP PRN (09:36)
[2024-04-25] MEDS ORDERED: METOPROLOL TARTRATE 50 MG TABLET PO STA (13:24)
[2024-04-25 16:41] LABS: BASOPHILS % (AUTO) 0.2 % (0.0-2.0); HEMATOCRIT 32 % (33-45); HEMOGLOBIN 10.8 g/dL (11.5-14.8); LYMPHOCYTES # (AUTO) 0.3 K/uL (0.8-4.8); MEAN CORPUSCULAR HEMOGLOBIN 31 PG (26.0-33.0); MEAN CORPUSCULAR HGB CONC 34 g/dl (31.0-36.0); MEAN CORPUSCULAR VOLUME 92 fL (82-100); MONOCYTES # (AUTO) 0.1 K/uL (0.1-1.30); MONOCYTES % (AUTO) 0.3 % (2.0-12.0); NEUTROPHILS # (AUTO) 25.2 K/uL (1.8-8.9); NEUTROPHILS % (AUTO) 98.5 % (43.0-81.0); PLATELET COUNT (AUTO) 292 K/uL (150-450); RED BLOOD CELL COUNT(AUTO) 3.46 MIL/uL (4.0-5.2); RED CELL DISTRIBUTION WIDTH 15.5 % (11.5-15.0); WHITE BLOOD COUNT (AUTO) 25.6 K/uL (4.3-11.0)
[2024-04-25 16:55] LABS: CREATININE 2.3 mg/dL (0.6-1.3); MAGNESIUM 2.1 mg/dL (1.8-2.4); PHOSPHORUS 3.9 mg/dL (2.5-4.9); POTASSIUM 3.7 mmol/L (3.5-5.1)
[2024-04-25] MEDS: MEROPENEM 500 MG in IV NS 0.9% 50 ML IV SCH (17:30)
[2024-04-25 18:27] LABS: ANISOCYTOSIS 1+; LYMPHOCYTES % (MANUAL) 3 % (16-48); MONOCYTES % (MANUAL) 3 % (0-11.0); NEUTROPHILS % (MANUAL) 94 (42-76); PLATELET ESTIMATE ADEQUATE
[2024-04-25 18:28] LABS: STOMATOCYTES 1+
[2024-04-25] MEDS: LINEZOLID RTU BAG 600 MG in PREMIX 1 EA IV SCH (20:48)
[2024-04-26] VITALS (27 sets, daily range): BP systolic 105–154; BP diastolic 58–90; TEMP 97.8–98.2; O2SAT 90–99
[2024-04-26] MEDS: LINEZOLID 600 MG TABLET PO SCH (08:39)
[2024-04-26] MEDS: LINEZOLID RTU BAG 600 MG in PREMIX 1 EA IV SCH (13:39)
[2024-04-27] VITALS (37 sets, daily range): BP systolic 92–156; BP diastolic 45–92; TEMP 98–98.8; O2SAT 90–99
[2024-04-27 05:07] LABS: BASOPHILS # (AUTO) 0.1 K/uL (0.0-0.2); BASOPHILS % (AUTO) 0.4 % (0.0-2.0); CALCIUM, SERUM 8.5 mg/dL (8.5-10.1); CARBON DIOXIDE 31 mmol/L (21-32); CHLORIDE 99 mmol/L (98-107); EOSINOPHILS % (AUTO) 0.1 % (0.0-6.0); GLUCOSE 128 mg/dL (74-106); HEMATOCRIT 30 % (33-45); HEMOGLOBIN 10.3 g/dL (11.5-14.8); LYMPHOCYTES # (AUTO) 0.2 K/uL (0.8-4.8); LYMPHOCYTES % (AUTO) 1.3 % (20.0-44.0); MAGNESIUM 1.9 mg/dL (1.8-2.4); MEAN CORPUSCULAR HEMOGLOBIN 31 PG (26.0-33.0); MEAN CORPUSCULAR HGB CONC 34 g/dl (31.0-36.0); MEAN CORPUSCULAR VOLUME 91 fL (82-100); MONOCYTES % (AUTO) 0.3 % (2.0-12.0); NEUTROPHILS # (AUTO) 17.1 K/uL (1.8-8.9); NEUTROPHILS % (AUTO) 97.9 % (43.0-81.0); PHOSPHORUS 2.9 mg/dL (2.5-4.9); PLATELET COUNT (AUTO) 317 K/uL (150-450); POTASSIUM 3.3 mmol/L (3.5-5.1); RED BLOOD CELL COUNT(AUTO) 3.34 MIL/uL (4.0-5.2); RED CELL DISTRIBUTION WIDTH 15.2 % (11.5-15.0); SODIUM SERUM 137 mmol/L (136-145); UREA NITROGEN, BLOOD 78 mg/dL (7-18); WHITE BLOOD COUNT (AUTO) 17.5 K/uL (4.3-11.0)
[2024-04-27 05:59] LABS: LYMPHOCYTES % (MANUAL) 1 % (16-48); MONOCYTES % (MANUAL) 1 % (0-11.0); NEUTROPHILS % (MANUAL) 98 (42-76)
[2024-04-27 06:01] LABS: ANISOCYTOSIS 1+; PLATELET ESTIMATE ADEQUATE
[2024-04-27 06:07] LABS: *SPE A/G RATIO 0.7 (0.7-1.7); *SPE ALBUMIN 2.1 g/dL (2.9-4.4); *SPE ALPHA-1-GLOBULIN 0.5 g/dL (0.0-0.4); *SPE ALPHA-2-GLOBULIN 1.1 g/dL (0.4-1.0); *SPE BETA GLOBULIN 0.9 g/dL (0.7-1.3); *SPE GLOBULIN, TOTAL 3.1 g/dL (2.2-3.9); *SPE M-SPIKE Not Observed g/dL (Not Observed); *SPE PROTEIN TOTAL 5.2 g/dL (6.0-8.5); *SPEGAMMA GLOBULIN 0.7 g/dL (0.4-1.8)
[2024-04-27] MEDS: FUROSEMIDE 40 MG TABLET PO SCH (08:38)
[2024-04-27] MEDS: QUETIAPINE FUMARATE 25 MG TABLET PO SCH (10:34)
[2024-04-27] MEDS: POTASSIUM CL. PREMIX PERIPHER. 50 ML IV SCH (10:35)
[2024-04-28] VITALS (56 sets, daily range): BP systolic 90–139; BP diastolic 40–63; TEMP 97.8–98.1; O2SAT 91–99
[2024-04-28 04:47] LABS: BASOPHILS # (AUTO) 0.1 K/uL (0.0-0.2); BASOPHILS % (AUTO) 0.3 % (0.0-2.0); EOSINOPHILS % (AUTO) 0.1 % (0.0-6.0); HEMATOCRIT 31 % (33-45); HEMOGLOBIN 10.4 g/dL (11.5-14.8); LYMPHOCYTES # (AUTO) 0.3 K/uL (0.8-4.8); LYMPHOCYTES % (AUTO) 1.3 % (20.0-44.0); MEAN CORPUSCULAR HEMOGLOBIN 31 PG (26.0-33.0); MEAN CORPUSCULAR HGB CONC 33 g/dl (31.0-36.0); MEAN CORPUSCULAR VOLUME 92 fL (82-100); MONOCYTES # (AUTO) 0.1 K/uL (0.1-1.30); MONOCYTES % (AUTO) 0.5 % (2.0-12.0); NEUTROPHILS # (AUTO) 22.7 K/uL (1.8-8.9); NEUTROPHILS % (AUTO) 97.8 % (43.0-81.0); PLATELET COUNT (AUTO) 314 K/uL (150-450); RED BLOOD CELL COUNT(AUTO) 3.39 MIL/uL (4.0-5.2); RED CELL DISTRIBUTION WIDTH 15.3 % (11.5-15.0); WHITE BLOOD COUNT (AUTO) 23.2 K/uL (4.3-11.0)
[2024-04-28 05:02] LABS: ALBUMIN 1.7 g/dL (3.4-5.0); BILIRUBIN,TOTAL 0.3 mg/dL (0.2-1.0); CALCIUM, SERUM 8.3 mg/dL (8.5-10.1); MAGNESIUM 1.9 mg/dL (1.8-2.4); PHOSPHORUS 4.6 mg/dL (2.5-4.9); POTASSIUM 3.2 mmol/L (3.5-5.1); TOTAL PROTEIN, SERUM 5.3 g/dL (6.4-8.2)
[2024-04-28] MEDS ORDERED: ALENDRONATE 70 MG TABLET PO SCH (07:00)
[2024-04-28 07:56] LABS: ABG BASE EXCESS -2.8 mmol/L (-2.0-3.0); ABG OXYGEN SATURATION 82.8 % (94.0-98.0); ABG PCO2 28.5 mmHg (32.0-45.0); ABG PH 7.461 (7.350-7.450); ABG PO2 45.3 mmHg (83.0-108.0); ABG TOTAL HEMOGLOBIN 12.7 G/dL (12.0-16.0); COHb 0.3 % (0.5-1.5); MetHb 0.1 % (0.0-1.5); O2Hb 82.5 % (94.0-97.0)
[2024-04-28] MEDS: POTASSIUM CHLORIDE 20 MEQ TAB.PRT.SR PO SCH (09:24)
[2024-04-29] VITALS (45 sets, daily range): BP systolic 95–158; BP diastolic 39–81; TEMP 98–98.4; O2SAT 91–97
[2024-04-29 04:33] LABS: BASOPHILS % (AUTO) 0.2 % (0.0-2.0); HEMATOCRIT 31 % (33-45); HEMOGLOBIN 10.8 g/dL (11.5-14.8); LYMPHOCYTES # (AUTO) 0.3 K/uL (0.8-4.8); LYMPHOCYTES % (AUTO) 1.5 % (20.0-44.0); MEAN CORPUSCULAR HEMOGLOBIN 32 PG (26.0-33.0); MEAN CORPUSCULAR HGB CONC 35 g/dl (31.0-36.0); MEAN CORPUSCULAR VOLUME 92 fL (82-100); MONOCYTES # (AUTO) 0.2 K/uL (0.1-1.30); NEUTROPHILS # (AUTO) 20.5 K/uL (1.8-8.9); NEUTROPHILS % (AUTO) 97.3 % (43.0-81.0); PLATELET COUNT (AUTO) 390 K/uL (150-450); RED BLOOD CELL COUNT(AUTO) 3.41 MIL/uL (4.0-5.2); RED CELL DISTRIBUTION WIDTH 15.3 % (11.5-15.0)
[2024-04-29 04:37] LABS: ALBUMIN 1.9 g/dL (3.4-5.0); BILIRUBIN,TOTAL 0.3 mg/dL (0.2-1.0); CALCIUM, SERUM 8.8 mg/dL (8.5-10.1); CREATININE 1.9 mg/dL (0.6-1.3); MAGNESIUM 2.2 mg/dL (1.8-2.4); PHOSPHORUS 4.1 mg/dL (2.5-4.9); POTASSIUM 3.9 mmol/L (3.5-5.1); TOTAL PROTEIN, SERUM 5.6 g/dL (6.4-8.2)
[2024-04-29] MEDS ORDERED: HEPARIN SODIUM, PORCINE 5000 UNITS/1 ML VIAL SQ SCH (11:00)
[2024-04-29] MEDS: HEPARIN SODIUM, PORCINE 5000 UNITS/1 ML VIAL SQ SCH (14:00)
[2024-04-29] MEDS: GABAPENTIN 100 MG CAPSULE PO SCH (21:27)
[2024-04-30] VITALS (28 sets, daily range): BP systolic 107–132; BP diastolic 43–71; TEMP 97.8–98.3; O2SAT 91–98
[2024-05-01] VITALS: BP 138/64; TEMP 98.1; O2SAT 96
[2024-05-01 04:00] VITALS: BP 128/68; TEMP 98.1; O2SAT 96
[2024-05-01 08:00] VITALS: BP 110/63; TEMP 98.8; O2SAT 96
[2024-05-01 08:56] LABS: BASOPHILS % (AUTO) 0.3 % (0.0-2.0); EOSINOPHILS % (AUTO) 0.3 % (0.0-6.0); HEMATOCRIT 35 % (33-45); HEMOGLOBIN 11.7 g/dL (11.5-14.8); LYMPHOCYTES # (AUTO) 0.4 K/uL (0.8-4.8); LYMPHOCYTES % (AUTO) 2.8 % (20.0-44.0); MEAN CORPUSCULAR HEMOGLOBIN 30 PG (26.0-33.0); MEAN CORPUSCULAR HGB CONC 33 g/dl (31.0-36.0); MEAN CORPUSCULAR VOLUME 91 fL (82-100); MONOCYTES # (AUTO) 0.1 K/uL (0.1-1.30); NEUTROPHILS # (AUTO) 12.4 K/uL (1.8-8.9); NEUTROPHILS % (AUTO) 95.6 % (43.0-81.0); PLATELET COUNT (AUTO) 384 K/uL (150-450); RED BLOOD CELL COUNT(AUTO) 3.86 MIL/uL (4.0-5.2); RED CELL DISTRIBUTION WIDTH 14.6 % (11.5-15.0)
[2024-05-01 09:12] LABS: CREATININE 1.7 mg/dL (0.6-1.3); POTASSIUM 3.8 mmol/L (3.5-5.1)
[2024-05-01 09:25] LABS: ALBUMIN 2.2 g/dL (3.4-5.0); BILIRUBIN,TOTAL 0.4 mg/dL (0.2-1.0); TOTAL PROTEIN, SERUM 5.9 g/dL (6.4-8.2)
[2024-05-01 09:28] LABS: MAGNESIUM 2.1 mg/dL (1.8-2.4); PHOSPHORUS 4.1 mg/dL (2.5-4.9)
[2024-05-01 12:00] VITALS: BP 117/69; TEMP 98.7; O2SAT 96
[2024-05-01 16:00] VITALS: BP 123/60; TEMP 98.7; O2SAT 95
[2024-05-01 20:00] VITALS: BP 123/66; TEMP 97.2; O2SAT 96
[2024-05-02] VITALS: BP 133/70; TEMP 97.9; O2SAT 96
[2024-05-02 04:00] VITALS: BP 137/60; TEMP 97.9; O2SAT 98
[2024-05-02 07:31] LABS: ALBUMIN 2.2 g/dL (3.4-5.0); BILIRUBIN,TOTAL 0.4 mg/dL (0.2-1.0); CALCIUM, SERUM 9.1 mg/dL (8.5-10.1); CREATININE 1.6 mg/dL (0.6-1.3); POTASSIUM 3.6 mmol/L (3.5-5.1); TOTAL PROTEIN, SERUM 5.9 g/dL (6.4-8.2)
[2024-05-02 07:51] LABS: BASOPHILS # (AUTO) 0.1 K/uL (0.0-0.2); BASOPHILS % (AUTO) 0.9 % (0.0-2.0); EOSINOPHILS % (AUTO) 0.2 % (0.0-6.0); HEMATOCRIT 34 % (33-45); HEMOGLOBIN 11.5 g/dL (11.5-14.8); LYMPHOCYTES # (AUTO) 0.4 K/uL (0.8-4.8); LYMPHOCYTES % (AUTO) 4.4 % (20.0-44.0); MEAN CORPUSCULAR HEMOGLOBIN 31 PG (26.0-33.0); MEAN CORPUSCULAR HGB CONC 34 g/dl (31.0-36.0); MEAN CORPUSCULAR VOLUME 91 fL (82-100); MONOCYTES # (AUTO) 0.1 K/uL (0.1-1.30); MONOCYTES % (AUTO) 1.6 % (2.0-12.0); NEUTROPHILS # (AUTO) 8.3 K/uL (1.8-8.9); NEUTROPHILS % (AUTO) 92.9 % (43.0-81.0); PLATELET COUNT (AUTO) 349 K/uL (150-450); RED BLOOD CELL COUNT(AUTO) 3.68 MIL/uL (4.0-5.2); RED CELL DISTRIBUTION WIDTH 14.9 % (11.5-15.0); WHITE BLOOD COUNT (AUTO) 8.9 K/uL (4.3-11.0)
[2024-05-02 08:00] VITALS: BP 137/60; TEMP 97.9; O2SAT 100
[2024-05-02] MEDS ORDERED: QUETIAPINE FUMARATE 25 MG TABLET PO PRN (10:00)
[2024-05-02 10:06] LABS: LYMPHOCYTES % (MANUAL) 7 % (16-48); MONOCYTES % (MANUAL) 2 % (0-11.0); NEUTROPHILS % (MANUAL) 92 (42-76)
[2024-05-02 10:07] LABS: ANISOCYTOSIS 1+; PLATELET ESTIMATE ADEQUATE
[2024-05-02 12:00] VITALS: BP 119/55; TEMP 98.1; O2SAT 95
[2024-05-02 16:00] VITALS: BP 131/57; TEMP 97.1; O2SAT 97
[2024-05-02 20:00] VITALS: BP 103/63; TEMP 97.9; O2SAT 97
[2024-05-03] VITALS: BP 133/68; TEMP 98.4; O2SAT 98
[2024-05-03 04:00] VITALS: BP 133/55; TEMP 98.2; O2SAT 95
[2024-05-03 08:00] VITALS: BP 112/48; TEMP 97.5; O2SAT 93
[2024-05-03 08:25] LABS: ALBUMIN 2.2 g/dL (3.4-5.0); BILIRUBIN,TOTAL 0.4 mg/dL (0.2-1.0); CALCIUM, SERUM 8.7 mg/dL (8.5-10.1); CREATININE 1.6 mg/dL (0.6-1.3); POTASSIUM 3.5 mmol/L (3.5-5.1); TOTAL PROTEIN, SERUM 5.6 g/dL (6.4-8.2)
[2024-05-03 08:42] LABS: BASOPHILS # (AUTO) 0.1 K/uL (0.0-0.2); BASOPHILS % (AUTO) 0.7 % (0.0-2.0); EOSINOPHILS # (AUTO) 0.1 K/uL (0.0-0.7); EOSINOPHILS % (AUTO) 0.6 % (0.0-6.0); HEMATOCRIT 32 % (33-45); HEMOGLOBIN 10.8 g/dL (11.5-14.8); LYMPHOCYTES # (AUTO) 0.4 K/uL (0.8-4.8); LYMPHOCYTES % (AUTO) 4.8 % (20.0-44.0); MEAN CORPUSCULAR HEMOGLOBIN 31 PG (26.0-33.0); MEAN CORPUSCULAR HGB CONC 34 g/dl (31.0-36.0); MEAN CORPUSCULAR VOLUME 91 fL (82-100); MONOCYTES # (AUTO) 0.2 K/uL (0.1-1.30); MONOCYTES % (AUTO) 2.5 % (2.0-12.0); NEUTROPHILS # (AUTO) 8.5 K/uL (1.8-8.9); NEUTROPHILS % (AUTO) 91.4 % (43.0-81.0); PLATELET COUNT (AUTO) 295 K/uL (150-450); RED BLOOD CELL COUNT(AUTO) 3.53 MIL/uL (4.0-5.2); RED CELL DISTRIBUTION WIDTH 14.3 % (11.5-15.0); WHITE BLOOD COUNT (AUTO) 9.3 K/uL (4.3-11.0)
[2024-05-03] MEDS ORDERED: DEXA4TAB PO (11:12)
[2024-05-03] MEDS ORDERED: AMIO200T7 PO (11:12)
[2024-05-03] MEDS ORDERED: DEXA6TAB6 PO (11:12)
[2024-05-03 12:00] VITALS: BP 125/52; TEMP 97.5; O2SAT 92
[2024-05-03 16:00] VITALS: BP 112/40; TEMP 97.3; O2SAT 93
== END 2024-05-03 18:08 | disposition home health service (06) | DRG 871 ==
LOC: ER 15:55 → TELE 20:06 → TELE1 20:55 → TELE-TD 04-25 14:38 → ICU 04-26 10:47 → TELE-TD 04-30 17:21 → TELE1 05-01 09:58
PROVIDERS: ADMIT Nurse Practitioner Family; ATTEND Internal Medicine
DX: A41.89 Other specified sepsis (principal); J96.01 Acute respiratory failure with hypoxia; J12.82 Pneumonia due to coronavirus disease 2019; J15.9 Unspecified bacterial pneumonia; U07.1 COVID-19; J44.0 Chronic obstructive pulmonary disease with (acute) lower respiratory infection; I50.43 Acute on chronic combined systolic (congestive) and diastolic (congestive) heart failure; E44.0 Moderate protein-calorie malnutrition; E87.1 Hypo-osmolality and hyponatremia; E87.20 Acidosis, unspecified; I13.0 Hypertensive heart and chronic kidney disease with heart failure and stage 1 through stage 4 chronic kidney disease, or unspecified chronic kidney disease; N17.9 Acute kidney failure, unspecified; I42.9 Cardiomyopathy, unspecified; I25.10 Atherosclerotic heart disease of native coronary artery without angina pectoris; D64.9 Anemia, unspecified; E87.6 Hypokalemia; E78.5 Hyperlipidemia, unspecified; E83.9 Disorder of mineral metabolism, unspecified; Z87.891 Personal history of nicotine dependence; Z88.0 Allergy status to penicillin; Z95.1 Presence of aortocoronary bypass graft; Z95.810 Presence of automatic (implantable) cardiac defibrillator; N18.9 Chronic kidney disease, unspecified; R74.01 Elevation of levels of liver transaminase levels; E88.09 Other disorders of plasma-protein metabolism, not elsewhere classified; E03.9 Hypothyroidism, unspecified; K27.9 Peptic ulcer, site unspecified, unspecified as acute or chronic, without hemorrhage or perforation; Z86.79 Personal history of other diseases of the circulatory system; Z66 Do not resuscitate; N28.1 Cyst of kidney, acquired
CPT/HCPCS: 36415; 36600; 70450-TC; 71045-TC; 71250-TC; 76770-TC; 80048-TC; 80053-TC; 80061-TC; 80076-TC; 81001; 82550-TC; 82570-TC; 82803-TC; 83605-TC; 83735-TC; 83880; 83970; 84100-TC; 84155; 84165; 84300-TC; 84484-TC; 85025-TC; 85378-TC; 85730-TC; 86140-TC; 87040-TC; 87081-TC; 87086-TC; 93307-TC; 93971-TC; 94760-TC; 94762-TC; 94799-TC; 97116-TC; 97530-TC; 99082-TC; A4216; A4223; G0378; J0692; J0696; J1100; J1644; J1940; J1956; J2020; J2185; J3480; J7030; J7050; J7060